=== PATIENT | female | born 1955 | race Caucasian/White ===

== ENCOUNTER → 2017-07-04 | Outpatient (CLI) | payer OTHER ==
[~2017-07-04] MED LIST: ACTOPLUS MET 501 TAB PO; LIPITOR 40MG TA40 MG PO; TENORMIN 5050 MG/TAB PO
== END ==
LOC: COL.RAD 12:32
DX: M47.816 Spondylosis without myelopathy or radiculopathy, lumbar region (principal); M51.26 Other intervertebral disc displacement, lumbar region; M48.061 Spinal stenosis, lumbar region without neurogenic claudication

== ENCOUNTER → 2019-03-05 | Outpatient (CLI) | payer OTHER | LOC: COL.VAS 12:16 | DX: I51.7 Cardiomegaly (principal) ==